=== PATIENT | female | born 1940 | race Caucasian/White ===

== ENCOUNTER 2022-09-07 16:50 | Inpatient (IN) | payer MEDICARE, OTHER ==
[~2022-09-07] VITALS: Ht 157.5 cm; Wt 53.5 kg
--- NOTE | 2022-09-07 17:23 | NUR ---
DR MONTANA AT BEDSIDE FOR EVAL.
[2022-09-07] MEDS ORDERED: HYDROMORPHONE 1 MG/1 ML DISP.SYRIN IV ONE (17:30)
[2022-09-07] MEDS ORDERED: HYDROMORPHONE 1 MG/1 ML DISP.SYRIN ONE (17:52)
--- NOTE | 2022-09-07 18:02 | NUR ---
PT TO RADIOLOGY FOR HEAD AND FACIAL CT SCAN
[2022-09-07 18:19] LABS: BASOPHILS % (AUTO) 0.1 % (0.0-2.0); EOSINOPHILS % (AUTO) 0.7 % (0.0-6.0); HEMATOCRIT 33 % (33-45); HEMOGLOBIN 10.2 g/dL (11.5-14.8); LYMPHOCYTES # (AUTO) 1.2 K/uL (0.8-4.8); LYMPHOCYTES % (AUTO) 8.3 % (20.0-44.0); MEAN CORPUSCULAR HGB CONC 31 g/dl (31.0-36.0); MEAN CORPUSCULAR VOLUME 79 fL (82-100); MONOCYTES # (AUTO) 0.5 K/uL (0.1-1.30); MONOCYTES % (AUTO) 3.3 % (2.0-12.0); NEUTROPHILS # (AUTO) 12.3 K/uL (1.8-8.9); NEUTROPHILS % (AUTO) 87.6 % (43.0-81.0); PLATELET COUNT (AUTO) 322 K/uL (150-450); RED BLOOD CELL COUNT(AUTO) 4.15 MIL/uL (4.0-5.2)
[2022-09-07 18:30] LABS: CALCIUM, SERUM 8.5 mg/dL (8.5-10.1); CREATININE 0.7 mg/dL (0.6-1.3); POTASSIUM 3.1 mmol/L (3.5-5.1)
--- NOTE | 2022-09-07 18:33 | NUR ---
COVID SWAB DONE SENT TO LAB.
--- NOTE | 2022-09-07 19:13 | NUR ---
CALLED [facility] [phone] [facility] 9 ANALILIA LOUIE SPEAKING WITH DR. MONTANA.
[2022-09-07] MEDS ORDERED: POTASSIUM CHLORIDE 20 MEQ TAB.PRT.SR PO ONE ×3 (19:30→20:30)
[2022-09-07] MEDS ORDERED: Z GUARD REMEDY 4 OZ OINT TP PRN (20:00)
[2022-09-07] MEDS ORDERED: ZOLPIDEM TARTRATE 5 MG TABLET PO PRN (20:00)
[2022-09-07] MEDS ORDERED: MAGNESIUM HYDROXIDE 30 ML UDC PO PRN (20:00)
[2022-09-07] MEDS ORDERED: IV NS 0.9% 1,000 ML IV ONE (20:00)
[2022-09-07] MEDS ORDERED: ACETAMINOPHEN 325 MG TABLET PO PRN (20:00)
[2022-09-07] MEDS ORDERED: MAG HYDROX/AL HYDROX/SIMETH 30 ML UDC PO PRN (20:00)
[2022-09-07] MEDS ORDERED: ONDANSETRON HCL/PF 4 MG/2 ML VIAL IVP PRN (20:00)
--- NOTE | 2022-09-07 20:58 | NUR ---
REPORT GIVEN TO BENITO BURRIS
--- NOTE | 2022-09-07 21:15 | NUR ---
PATIENT TRANSFERRED TO [facility]
[2022-09-07 21:21] VITALS: BP 150/53
--- NOTE | 2022-09-07 21:21 | NUR ---
RN RECEIVING NOTE FROM ER PATIENT ARRIVED STABLE TO UNIT VIA GURNEY FROM ER. PATIENT TRANSFERRED INTO UNIT BED BY STAFF. A/OX4. NO S/S OF DISTRESS, BREATHING WITHOUT DIFFICULTY ON ROOM AIR. LAC #18 INTACT AND PATENT. SAFETY MEASURES IN PLACE: BED LOCKED AND AT LOWEST POSITION, RAILS UP X2, CALL DAVIDSON WITHIN REACH. PATIENT WAS ORIENTED TO THE UNIT. PATIENT GIVEN CALL DAVIDSON AND INSTRUCTED ON ITS USE. BELONGINGS ACCOUNTED FOR, LOGGED INTO SHEET, AND PLACED IN CHART. ALL QUESTIONS ANSWERED. ALL PAIN NEEDS MET. PATIENT IS STABLE; WILL CONTINUE TO MONITOR PATIENT.
[2022-09-07] MEDS ORDERED: MORPHINE SULFATE INJ 4 MG/ML DISP.SYRIN IV PRN (21:30)
[2022-09-07] MEDS: HYDROMORPHONE 1 MG/1 ML DISP.SYRIN IV PRN (22:10)
[2022-09-08 02:15] VITALS: BP 150/59
[2022-09-08] MEDS: HYDROMORPHONE 1 MG/1 ML DISP.SYRIN IV PRN ×2 (04:30→10:57)
[2022-09-08 06:09] LABS: BILIRUBIN,URINE NEGATIVE (NEGATIVE); COLOR,URINE YELLOW (YELLOW); LEUKOCYTE ESTERASE ,URINE NEGATIVE (NEGATIVE); NITRITE, URINE NEGATIVE (NEGATIVE); PROTEIN,URINE NEGATIVE (NEGATIVE); UGLUCOSE NEGATIVE (NEGATIVE); UROBILINOGEN,URINE 0.2 EU/dL (0.2)
[2022-09-08 06:19] LABS: BACTERIA,URINE Rare /HPF (None Seen); SQUAMOUS EPITHELIAL CELL,UR Few /HPF (None Seen)
[2022-09-08 06:56] LABS: BASOPHILS % (AUTO) 0.2 % (0.0-2.0); EOSINOPHILS % (AUTO) 0.1 % (0.0-6.0); HEMATOCRIT 30 % (33-45); HEMOGLOBIN 9.6 g/dL (11.5-14.8); LYMPHOCYTES % (AUTO) 11.2 % (20.0-44.0); MEAN CORPUSCULAR HGB CONC 32 g/dl (31.0-36.0); MEAN CORPUSCULAR VOLUME 80 fL (82-100); MONOCYTES # (AUTO) 0.6 K/uL (0.1-1.30); MONOCYTES % (AUTO) 6.4 % (2.0-12.0); NEUTROPHILS # (AUTO) 7.2 K/uL (1.8-8.9); NEUTROPHILS % (AUTO) 82.1 % (43.0-81.0); PLATELET COUNT (AUTO) 346 K/uL (150-450); RED BLOOD CELL COUNT(AUTO) 3.79 MIL/uL (4.0-5.2); WHITE BLOOD COUNT (AUTO) 8.8 K/uL (4.3-11.0)
--- NOTE | 2022-09-08 06:56 | NUR ---
RN CLOSING NOTE PATIENT AWAKE IN BED. A/OX4. NO S/S OF DISTRESS, BREATHING WITHOUT DIFFICULTY ON ROOM AIR. LAC #18 INTACT AND PATENT W/ NS 75ML/HR. SAFETY MEASURES IN PLACE: BED LOCKED AND AT LOWEST POSITION, RAILS UP X2, CALL DAVIDSON WITHIN REACH. WILL ENDORSE TO NEXT SHIFT FOR AISHA.
--- NOTE | 2022-09-08 07:20 | NUR ---
MS RN OPENING NOTE PATIENT AWAKE IN BED. A/OX4 ABLE TO MAKE NEEDS KNOWN, NO COMPLAINTS OR DISCOMFORT AT THIS TIME. NO S/S OF DISTRESS, BREATHING WITHOUT DIFFICULTY ON ROOM AIR. NO S/S OF RESPIRATORY DISTRESS NOTED. IV ACCESS LAC #18 INTACT AND PATENT W/ NS RUNNING AT 75ML/HR, NO SIGNS OF INFILTRATION. SAFETY MEASURES IN PLACE: BED LOCKED AND AT LOWEST POSITION, RAILS UP X2, CALL LIGHT AND TRAY WITHIN REACH.
[2022-09-08 07:32] LABS: ALANINE AMINOTRANSFERASE 21 U/L (12-78); ALBUMIN 2.5 g/dL (3.4-5.0); ALKALINE PHOSPHATASE 64 U/L (46-116); ASPARTATE AMINOTRANSFERASE 22 U/L (15-37); BILIRUBIN,DIRECT 0.1 mg/dL (0.0-0.2); BILIRUBIN,TOTAL 0.4 mg/dL (0.2-1.0); CALCIUM, SERUM 8.2 mg/dL (8.5-10.1); CARBON DIOXIDE 26 mmol/L (21-32); CHLORIDE 103 mmol/L (98-107); CREATININE 0.7 mg/dL (0.6-1.3); GLUCOSE 135 mg/dL (74-106); MAGNESIUM 2.1 mg/dL (1.8-2.4); PHOSPHORUS 3.2 mg/dL (2.5-4.9); POTASSIUM 3.2 mmol/L (3.5-5.1); SODIUM SERUM 137 mmol/L (136-145); UREA NITROGEN, BLOOD 21 mg/dL (7-18)
[2022-09-08 07:39] LABS: CHOLESTEROL 161 mg/dL (<200); HDL CHOLESTEROL 60 mg/dL (40-60); LDL 89 mg/dL (0-99); THYROID STIMULATING HORMONE 1.302 uIU/mL (0.358-3.74); TRIGLYCERIDES 46 mg/dL (30-150)
[2022-09-08 08:00] VITALS: BP 148/71
[2022-09-08] MEDS: PANTOPRAZOLE 40 MG VIAL IV SCH (08:59)
[2022-09-08] MEDS ORDERED: MULT-447 PO (10:05)
[2022-09-08] MEDS ORDERED: CHOL100043 PO (10:05)
[2022-09-08] MEDS ORDERED: LOSA50TA39 PO (10:05)
[2022-09-08] MEDS ORDERED: AMLO-212 PO (10:05)
[2022-09-08] MEDS ORDERED: CALC1TAB30 PO (10:05)
[2022-09-08] MEDS ORDERED: POTA10TA10 PO (10:05)
[2022-09-08] MEDS: POTASSIUM CL. PREMIX PERIPHER. 50 ML IV SCH ×4 (10:11→14:06)
[2022-09-08 11:09] LABS: IRON, SERUM 18 ug/dl (50-175); TOTAL IRON BINDING CAPACITY 308 ug/dl (250-450)
--- NOTE | 2022-09-08 11:10 | NUR ---
RN NOTES APPLIED SLING TO RIGHT ARM PER MD ORDER.
[2022-09-08 11:23] LABS: FERRITIN 51 ng/mL (8-388)
[2022-09-08] MEDS ORDERED: CALC-343 PO (14:19)
--- NOTE | 2022-09-08 15:23 | NUR ---
RN NOTES ANALILIA SAL AT PT'S BEDSIDE AND EXPLAINED TO PT AND DAUGHTER THAT PT WILL HAVE RIGHT HIP INTRAMEDULLARY NAIL TOMORROW. PT'S DAUGHTER RAFA SIGNED ALL CONSENTS FOR THE PROCEDURE AND FILED ON HER CHART. NPO TO BE ENFORCED AFTER MIDNIGHT.
--- NOTE | 2022-09-08 15:56 | NUR ---
RN NOTES PATIENTS FAMILY WAS HERE AND DISCUSSED VARIOUS REHABS POST SURGERY TOMORROW. GAVE SOUND PRINTER GLENN, THE DAUGHTER DEBBIES PHONE NUMBER TO FOLLOW UP.
[2022-09-08 16:00] VITALS: BP 150/66
--- NOTE | 2022-09-08 16:04 | NUR ---
RN NOTES SPOKED TO PATIENT AT BEDSIDE AND SHE STATED THAT THE PRIMARY PERSON TO CONTACT WILL BE HER DAUGHTER RAFA BAILEY AT [facility] # [phone]. [employer]ER [employer] FRANCISCO ASCENCIO.
[2022-09-08] MEDS: HYDROCODONE/APAP 5/325MG TABLET PO PRN ×2 (16:16→22:21)
--- NOTE | 2022-09-08 18:48 | NUR ---
RN CLOSING NOTE PATIENT AWAKE IN BED AT THIS TIME.. A/OX4, ABLE TO MAKE NEEDS KNOWN. BREATHING WITHOUT DIFFICULTY ON ROOM AIR, NO SIGNS OF DISTRESS. IV ACCESS LAC #18G INTACT AND PATENT, INFUSING WITH NS @75ML/HR. PAIN MEDICATION GIVEN ORDERED AND TOLERATED. SAFETY MEASURES IN PLACE: BED LOCKED AND AT LOWEST POSITION, RAILS UP X2, CALL DAVIDSON WITHIN REACH. ALL NEEDS MET AT THIS TIME. WILL ENDORSE AISHA TO NIGHT NURSE
--- NOTE | 2022-09-08 19:57 | NUR ---
RN OPENING NOTE PATIENT AWAKE, AMBULATING IN THE HALLWAY. A/OX4. NO S/S OF DISTRESS; BREATHING WITHOUT DIFFICULTY ON ROOM AIR. RAC #20 SL INTACT AND PATENT. TELE READS SR 83. SAFETY MEASURES IN PLACE: BED LOCKED AND AT LOWEST POSITION, RAILS UP X2, CALL DAVIDSON WITHIN REACH. WILL CONTINUE TO MONITOR PATIENT. Addendum: 09/08/22 at 1958 by DAYTON ARMSTRONG RN INCORRECT PATIENT
--- NOTE | 2022-09-08 19:58 | NUR ---
RN OPENING NOTE PATIENT AWAKE IN BED. A/OX4. NO S/S OF DISTRESS; BREATHING WITHOUT DIFFICULTY ON ROOM AIR. LAC #18 INTACT AND PATENT W/ NS 75ML/HR. SAFETY MEASURES IN PLACE: BED LOCKED AND AT LOWEST POSITION, RAILS UP X2, CALL DAVIDSON WITHIN REACH. WILL CONTINUE TO MONITOR PATIENT.
[2022-09-08 21:04] VITALS: BP 143/57
[2022-09-09] VITALS (13 sets, daily range): BP systolic 106–156; BP diastolic 40–82
--- NOTE | 2022-09-09 07:01 | NUR ---
RN CLOSING NOTE PATIENT ASLEEP IN BED. NO S/S OF DISTRESS, BREATHIING WITHOUT DIFFICULTY ON ROOM AIR. LAC #18 SL INTACT AND PATENT. SAFETY MEASURES IN PLACE: BED LOCKED AND IN LOWEST POSITION, RAILS UP X2, CALL DAVIDSON WITHIN REACH. WILL ENDORSE TO NEXT SHIFT FOR AISHA.
[2022-09-09 07:20] LABS: BASOPHILS % (AUTO) 0.1 % (0.0-2.0); EOSINOPHILS % (AUTO) 0.5 % (0.0-6.0); HEMATOCRIT 29 % (33-45); HEMOGLOBIN 9.2 g/dL (11.5-14.8); LYMPHOCYTES # (AUTO) 0.9 K/uL (0.8-4.8); LYMPHOCYTES % (AUTO) 9.7 % (20.0-44.0); MEAN CORPUSCULAR HGB CONC 32 g/dl (31.0-36.0); MEAN CORPUSCULAR VOLUME 79 fL (82-100); MONOCYTES # (AUTO) 0.6 K/uL (0.1-1.30); MONOCYTES % (AUTO) 6.5 % (2.0-12.0); NEUTROPHILS # (AUTO) 7.9 K/uL (1.8-8.9); NEUTROPHILS % (AUTO) 83.2 % (43.0-81.0); PLATELET COUNT (AUTO) 334 K/uL (150-450); RED BLOOD CELL COUNT(AUTO) 3.67 MIL/uL (4.0-5.2); WHITE BLOOD COUNT (AUTO) 9.5 K/uL (4.3-11.0)
[2022-09-09 07:37] LABS: ALBUMIN 2.4 g/dL (3.4-5.0); BILIRUBIN,TOTAL 0.6 mg/dL (0.2-1.0); CALCIUM, SERUM 8.3 mg/dL (8.5-10.1); CREATININE 0.7 mg/dL (0.6-1.3); MAGNESIUM 2.4 mg/dL (1.8-2.4); POTASSIUM 3.3 mmol/L (3.5-5.1); TOTAL PROTEIN, SERUM 6.1 g/dL (6.4-8.2)
--- NOTE | 2022-09-09 07:46 | NUR ---
RN OPENING NOTE PATIENT MAINTAINED ON NPO STATUS FOR SCHEDULED ORTHOPEDIC SURGERY TODAY AT 11:00 AM. PATIENT AWAKE IN BED. A/OX4. NO S/S OF DISTRESS; BREATHING WITHOUT DIFFICULTY ON ROOM AIR. LAC #18 INTACT AND PATENT W/ NS 75ML/HR. SAFETY MEASURES IN PLACE: BED LOCKED AND AT LOWEST POSITION, RAILS UP X2, CALL DAVIDSON WITHIN REACH. WILL CONTINUE TO MONITOR PATIENT.
[2022-09-09] MEDS ORDERED: BUPIVACAINE 0.25% 75 MG/30 ML VIAL ONE (09:00)
[2022-09-09] MEDS ORDERED: BUPIVACAINE 0.5 % PF 150 MG/30 ML VIAL ONE ×2 (09:00→09:51)
[2022-09-09] MEDS: PANTOPRAZOLE 40 MG VIAL IV SCH (09:06)
[2022-09-09] MEDS ORDERED: VANCOMYCIN 1 GM VIAL ONE (09:51)
--- NOTE | 2022-09-09 10:32 | NUR ---
RN NOTES PATIENT PICKED-UP JUST NOW FOR SURGERY VIA HER BED
[2022-09-09] MEDS ORDERED: POTASSIUM CL. PREMIX PERIPHER. 50 ML IV SCH ×2 (11:00→16:00)
[2022-09-09] MEDS ORDERED: POLYMYXIN B SULFATE 500,000 UNITS ONE (11:16)
[2022-09-09] MEDS ORDERED: FENTANYL PF 100MCG/2ML AMPUL ONE (11:19)
[2022-09-09] MEDS ORDERED: ROCURONIUM BROMIDE 50 MG/5 ML ONE (11:19)
[2022-09-09] MEDS ORDERED: SOD FERRIC GLUC 125 MG in IV NS 0.9% 100 ML IV SCH (14:00)
[2022-09-09] MEDS: LOSARTAN POTASSIUM 50 MG TABLET PO SCH (14:00)
--- NOTE | 2022-09-09 14:00 | NUR ---
RN NOTES PT RETURNED TO UNIT AT 1345 ACCOMPANIED BY BUSINESS LAW PROFESSOR TRACE DYER S/P RIGHT HIP INTRAMEDULLARY NAIL RODDING BY DR BETANCUR. PT IS SLIGHTLY LETHARGIC BUT RESPONSIVE TO TACTILE AND VERBAL STIMULI, NO C/O PAIN AT THIS TIME. PT ON SUPPLEMENTAL 02 @ 2LPM, TOLERATING WELL, NO SOB NOTED WITH SP02 95%. PT HAS NEW IV ACCESS ON RFA G#20, OLD IV ACCESS ON RAC G#18 REMOVED BEFORE SURGERY. PT HAS ALSTON IN PLACE NOW FR #16 WITH CLEAR YELLOW URINE OUT PUT NOTED. ALL S/P ORDERED RECEIVED AND WILL CARRY OUT. SAFETY MEASURES MAINTAINED. WILL CONTINUE TO MONITOR PT CLOSELY.
[2022-09-09] MEDS ORDERED: HYDROCODONE/APAP 10/325MG TABLET PO PRN (14:30)
[2022-09-09] MEDS ORDERED: POTASSIUM CHLORIDE 20 MEQ POWDER PACKET PO ONE (15:30)
[2022-09-09] MEDS: HYDROCODONE/APAP 10/325MG TABLET PO PRN (15:53)
[2022-09-09] MEDS: IRON SUCROSE COMPLEX 200 MG in IV NS 0.9% 100 ML IV SCH (15:54)
[2022-09-09] MEDS: CEFAZOLIN 2 GM in IV D5W 100 ML IV SCH (18:51)
--- NOTE | 2022-09-09 19:20 | NUR ---
RN CLOSING NOTE PATIENT AWAKE IN BED AT THIS TIME. A/OX4, ABLE TO MAKE NEEDS KNOWN. BREATHING WITHOUT DIFFICULTY ON ROOM AIR, NO SIGNS OF DISTRESS. RETURNED STATUS POST ORTHOPEDIC SURGERY AT 13:45 HRS WITH 3 SURGICAL SITE DRESSINGS TO HER RIGHT LEG WHICH ARE CLEAN, DRY, INTACT. COLOR, SENSATION AND MOTION IN RIGHT FOOT ARE WITHIN NORMAL LIMITS. IV ACCESS LAC #18G INTACT AND PATENT, INFUSING WITH ANCEF @ 200mLs /HR. PAIN MEDICATION GIVEN ORDERED AND TOLERATED. SAFETY MEASURES IN PLACE: BED LOCKED AND AT LOWEST POSITION, RAILS UP X2, CALL DAVIDSON WITHIN REACH. PATIENT HAS Garcia CATHETER THAT DRAINED 100 mLs CLEAR YELLOW URINE SINCE HER RETURN FROM SURGERY.ALL NEEDS MET AT THIS TIME. WILL ENDORSE AISHA TO NIGHT NURSE
--- NOTE | 2022-09-09 19:45 | NUR ---
MS RN NOTES RECEIVED ON BED A/O X4,QBLE TO VERBALIZED NEEDS.S/P SURGERY IN RIGHT HIP,DRESSING INTACT AND DRY.SALINE LOCK RIGHT FORE ARM INTACT AND PATENT.WITH ALSTON CATH IN PLACE DRAINS CLEAR YELLOW URINE OUTPUT.PAIN TOLERABLE AT THE MOMENT.DVT IN USED FOR DVT PROPHYLAXIS,CALL LIGHT IN REACH,NEEDS ANTICIPATED.
[2022-09-10] MEDS: CEFAZOLIN 2 GM in IV D5W 100 ML IV SCH ×2 (01:37→10:24)
[2022-09-10] MEDS: HYDROCODONE/APAP 10/325MG TABLET PO PRN ×2 (02:02→09:44)
--- NOTE | 2022-09-10 02:02 | NUR ---
MS RN NOTES AWAKE THIS TIME,HAVING FACIAL GRIMACE,NORCO 10/325MG,1 TAB PO GIVEN ORDERED FOR MODERATE PAIN 6/10 ON PAIN SCALE.
[2022-09-10 04:32] VITALS: BP 118/46
--- NOTE | 2022-09-10 06:33 | NUR ---
MS RN NOTES MORNING CARE RENDERED,TOLERATED WELL.PAIN MANAGEMENT EFFECTIVE.ALSTON CATHETER DRAINS WELL.DRESSING TO LEFT HIP AND LEGS INTACT AND DRY,NO BLEEDING NOTED.SALINE LOCK LEFT ARM INTACT AND PATENT.FOR PT EVAL FOR AMBULATION.CALL LIGHT IN REACH,NEEDS ATTENDED.
[2022-09-10 07:15] LABS: BASOPHILS % (AUTO) 0.2 % (0.0-2.0); EOSINOPHILS % (AUTO) 0.3 % (0.0-6.0); HEMATOCRIT 23 % (33-45); HEMOGLOBIN 7.2 g/dL (11.5-14.8); LYMPHOCYTES # (AUTO) 1.1 K/uL (0.8-4.8); LYMPHOCYTES % (AUTO) 9.1 % (20.0-44.0); MEAN CORPUSCULAR HGB CONC 32 g/dl (31.0-36.0); MEAN CORPUSCULAR VOLUME 78 fL (82-100); MONOCYTES # (AUTO) 0.6 K/uL (0.1-1.30); MONOCYTES % (AUTO) 5.6 % (2.0-12.0); NEUTROPHILS # (AUTO) 9.8 K/uL (1.8-8.9); NEUTROPHILS % (AUTO) 84.8 % (43.0-81.0); PLATELET COUNT (AUTO) 280 K/uL (150-450); RED BLOOD CELL COUNT(AUTO) 2.92 MIL/uL (4.0-5.2); WHITE BLOOD COUNT (AUTO) 11.5 K/uL (4.3-11.0)
[2022-09-10 07:38] LABS: CARBON DIOXIDE 27 mmol/L (21-32); CHLORIDE 104 mmol/L (98-107); GLUCOSE 104 mg/dL (74-106); MAGNESIUM 2.3 mg/dL (1.8-2.4); PHOSPHORUS 2.5 mg/dL (2.5-4.9); POTASSIUM 3.8 mmol/L (3.5-5.1); SODIUM SERUM 138 mmol/L (136-145); UREA NITROGEN, BLOOD 26 mg/dL (7-18)
--- NOTE | 2022-09-10 07:40 | NUR ---
RN OPENING NOTE RECEIVED PATIENT AWAKE IN BED. A/OX4. NO S/S OF DISTRESS. BREATHING EVEN AND NONLABORED ON ROOM AIR. IV ACCESS: LAC #18 INTACT AND PATENT. PATIENT HAVE A ALSTON CATHETER, IN PLACE AND DRAINING WELL. SAFETY MEASURES IN PLACE: BED IS IN LOWEST LOCKED POSITION, HOB IS ELEVATED, BED ALARM ON, SIDE RAILS UP X 3 AND CALL LIGHT WITHIN REACH. WILL CONTINUE TO MONITOR PATIENT THROUGHOUT THE SHIFT.
[2022-09-10 08:00] VITALS: BP 142/84
[2022-09-10] MEDS: PANTOPRAZOLE 40 MG VIAL IV SCH (09:41)
[2022-09-10] MEDS: AMLODIPINE BESYLATE 5 MG TABLET PO SCH (09:42)
[2022-09-10] MEDS: LOSARTAN POTASSIUM 50 MG TABLET PO SCH (09:43)
[2022-09-10] MEDS: MULTIVIT W/MINERALS 1 TAB TABLET PO SCH (09:43)
[2022-09-10] MEDS: CHOLECALCIFEROL 1,000 UNIT TABLET (VIT D3) PO SCH (09:43)
[2022-09-10] MEDS: CALCIUM CARBONATE (1250) 500 MG TABLET PO SCH (09:43)
[2022-09-10] MEDS: IV LR 1000 ML 1,000 ML IV PRN (10:36)
[2022-09-10] MEDS: ENOXAPARIN SODIUM 40 MG/0.4 ML DISP.SYRIN SQ SCH (14:00)
--- NOTE | 2022-09-10 14:00 | NUR ---
RN NOTE HOLD LOVENOX 40MG @1400. RELAYED H&H RESULT TO DR SAL. DR ORDERED TO HELD THIS LOVENOX DOSE.
[2022-09-10 14:41] LABS: HEMOGLOBIN 7.4 g/dL (11.5-14.8)
[2022-09-10 16:00] VITALS: BP 118/38
--- NOTE | 2022-09-10 18:38 | NUR ---
RN CLOSING NOTE PATIENT AWAKE IN BED. A/OX4. NO S/S OF DISTRESS. BREATHING EVEN AND NONLABORED ON ROOM AIR. IV ACCESS: LAC #18 INTACT AND PATENT, LR @85ML/HR. PATIENT HAVE A ALSTON CATHETER IN PLACE AND DRAINING WELL. ALL CARE PROVIDED AND ADMINISTERED MEDICATIONS TOLERATED WELL. SAFETY PRECAUTIONS MAINTAINED: BED LOCKED AND IN LOWEST POSITION, HOB ELEVATED, SIDE RAILS UP X2, CALL LIGHT AND TABLE WITHIN REACH. WILL ENDORSE AISHA TO TRICOT KNITTER NURSE.
--- NOTE | 2022-09-10 19:41 | NUR ---
MS RN NOTES RECEIVED ON BED AWAKE,ALERT ORIENTED X4,NO SOB,S/P RIGHT HIP SURGERY,DRESSING INTACT AND DRY.PRESENT IVF LR AT 100ML/HR RATE IN PROGRESS,INFUSING VIA IV PUMP ON LEFT ARM.ALSTON CATH IN PLACE DRAINS YELLOWISH URINE OUTPUT.PAIN TOLERABLE AT THE MOMENT.CALL LIGHT IN REACH,NEEDS ANTICIPATED.
[2022-09-10 20:00] VITALS: BP 119/49
[2022-09-11] MEDS: IV LR 1000 ML 1,000 ML IV PRN (00:15)
--- NOTE | 2022-09-11 02:45 | NUR ---
MS RN NOTES IV SITE INFILTRATED,NEW SALINE LOCK PLACE ON LEFT HAND # 22, IV RE STARTED.
[2022-09-11 06:23] LABS: BASOPHILS % (AUTO) 0.2 % (0.0-2.0); EOSINOPHILS % (AUTO) 1.7 % (0.0-6.0); HEMATOCRIT 21 % (33-45); LYMPHOCYTES # (AUTO) 1.1 K/uL (0.8-4.8); LYMPHOCYTES % (AUTO) 15.5 % (20.0-44.0); MEAN CORPUSCULAR HGB CONC 33 g/dl (31.0-36.0); MEAN CORPUSCULAR VOLUME 78 fL (82-100); MONOCYTES # (AUTO) 0.6 K/uL (0.1-1.30); MONOCYTES % (AUTO) 8.4 % (2.0-12.0); NEUTROPHILS # (AUTO) 5.2 K/uL (1.8-8.9); NEUTROPHILS % (AUTO) 74.2 % (43.0-81.0); PLATELET COUNT (AUTO) 267 K/uL (150-450); RED BLOOD CELL COUNT(AUTO) 2.69 MIL/uL (4.0-5.2); WHITE BLOOD COUNT (AUTO) 7.1 K/uL (4.3-11.0)
[2022-09-11 06:39] LABS: HEMOGLOBIN 6.8 g/dL (11.5-14.8)
[2022-09-11 06:55] LABS: CALCIUM, SERUM 7.8 mg/dL (8.5-10.1); CREATININE 0.7 mg/dL (0.6-1.3); MAGNESIUM 2.3 mg/dL (1.8-2.4); PHOSPHORUS 2.1 mg/dL (2.5-4.9); POTASSIUM 3.8 mmol/L (3.5-5.1)
--- NOTE | 2022-09-11 07:25 | NUR ---
RN OPENING NOTES RECEIVED PATIENT IN BED, AWAKE, A/O X4, VERBALLY RESPONSIVE. NO SIGNS OF ACUTE DISTRESS NOTED. ON ROOM AIR, TOLERATING WELL. NO SOB NOTED, BREATHING EVEN AND UNLABORED. NOTED WITH IV ACCESS ON RIGHT HAND #22G, INTACT AND PATENT WITH LR @85 ML/HR RUNNING. NOTED WITH F/C INTACT, DRAINING CLEAR YELLOW URINE VIA GRAVITY. SAFETY MEASURE IN PLACE.ED IN LOWEST AND LOCKED POSITION. SIDE RAILS UP X2, CALL LIGHT PLACED WITHIN EASY REACH. WILL CONTINUE TO MONITOR PATIENT.
--- NOTE | 2022-09-11 07:28 | NUR ---
MS RN NOTES REPORTED BY CHARGE NURSE ALIDA,HEMOGLOBIN OF 6.8 THIS MORNING,HOSPITALIST MARKUS MADE ORDER WITH ORDER TO TRANSFUSE 1 UNIT PRBC,NURSE ASSIGNED MALIKA MADE AWARE.ASLEEP THRU OUT SHIFT.IN NO ACUTE DISTRESS.
[2022-09-11] MEDS: HYDROCODONE/APAP 10/325MG TABLET PO PRN (07:47)
[2022-09-11] MEDS: PANTOPRAZOLE 40 MG TABLET.DR PO SCH (09:37)
[2022-09-11] MEDS: LOSARTAN POTASSIUM 50 MG TABLET PO SCH (09:37)
[2022-09-11] MEDS: MULTIVIT W/MINERALS 1 TAB TABLET PO SCH (09:37)
[2022-09-11] MEDS: AMLODIPINE BESYLATE 5 MG TABLET PO SCH (09:37)
[2022-09-11] MEDS: CALCIUM CARBONATE (1250) 500 MG TABLET PO SCH (09:37)
[2022-09-11] MEDS: CHOLECALCIFEROL 1,000 UNIT TABLET (VIT D3) PO SCH (09:38)
[2022-09-11] MEDS ORDERED: NEUTRA PHOS 1 POWD.PACKET PO ONE ×2 (11:00)
[2022-09-11 11:51] LABS: BAND % (MANUAL) 3 % (0.0-5.0); EOSINOPHILS % (MANUAL) 2 % (0-4); LYMPHOCYTES % (MANUAL) 22 % (16-48); MONOCYTES % (MANUAL) 5 % (0-11.0); NEUTROPHILS % (MANUAL) 68 (42-76)
[2022-09-11] MEDS: ENOXAPARIN SODIUM 40 MG/0.4 ML DISP.SYRIN SQ SCH (14:00)
[2022-09-11 14:20] VITALS: BP 120/57
--- NOTE | 2022-09-11 14:30 | NUR ---
RN NOTE BLOOD TRANSFUSION OF 1 UNIT PRBC STARTED. VITAL SIGNS FOLLOWS: 120/57, 78, 97.8, 19. WILL MONITOR FOR ADVERSE REACTION.
[2022-09-11 14:45] VITALS: BP 123/51
[2022-09-11 15:45] VITALS: BP 126/71
--- NOTE | 2022-09-11 17:00 | NUR ---
RN NOTE BLOOD TRANSFUSION DONE, WITHOUT ANY SIGNS OF ADVERSE REACTION. PATIENT TOLERATED PROCEDURE WELL. VITAL SIGNS WNL.
[2022-09-11 17:03] VITALS: BP 115/61
[2022-09-11] MEDS: IRON SUCROSE COMPLEX 200 MG in IV NS 0.9% 100 ML IV SCH (17:17)
--- NOTE | 2022-09-11 18:40 | NUR ---
RN CLOSING NOTE PATIENT IN BED, AWAKE, A/O X4, VERBALLY RESPONSIVE. NO SIGNS OF ACUTE DISTRESS NOTED. REMAINS STABLE ON ROOM AIR, NO SOB NOTED, BREATHING EVEN AND UNLABORED. IV ACCESS ON RIGHT HAND #22G, INTACT AND PATENT WITH LR @85 ML/HR RUNNING. NOTED WITH F/C INTACT, DRAINING CLEAR YELLOW URINE VIA GRAVITY. S/P BLOOD TRANSFUSION, NO A/R NOTED. ALL DUE MEDS GIVEN, TAKEN WELL. SAFETY MEASURE MAINTAINED. BED IN LOWEST AND LOCKED POSITION. SIDE RAILS UP X2, CALL LIGHT PLACED WITHIN EASY REACH. WILL ENDORSE TO NEXT SHIFT FOR CONTINUITY OF CARE.
--- NOTE | 2022-09-11 19:48 | NUR ---
RN OPENING NOTE PATIENT ASLEEP IN BED. A/OX4. NO S/S OF DISTRESS, BREATHING WITHOUT DIFFICULTY ON ROOM AIR. R-WRIST #20 INTACT AND PATENT. SAFETY MEASURES IN PLACE: BED LOCKED AND AT LOWEST POSITION, RAILS UP X2, CALL DAVIDSON WITHIN REACH. WILL CONTINUE TO MONITOR PATIENT.
[2022-09-11 20:00] VITALS: BP 144/64
[2022-09-12] MEDS: HYDROCODONE/APAP 10/325MG TABLET PO PRN ×2 (00:26→14:30)
[2022-09-12] MEDS: IV LR 1000 ML 1,000 ML IV PRN ×2 (06:33→21:40)
--- NOTE | 2022-09-12 06:56 | NUR ---
RN CLOSING NOTE PATIENT ASLEEP IN BED. A/OX4. NO S/S OF DISTRESS, BREATHING WITHOUT DIFFICULTY ON ROOM AIR. RFA #20 INTACT AND PATENT W/ LR 85ML/HR. SAFETY MEASURES IN PLACE: BED LOCKED AND AT LOWEST POSITION, RAILS UP X2, CALL DAVIDSON WITHIN REACH. WILL ENDORSE TO NEXT SHIFT FOR AISHA.
[2022-09-12 07:00] VITALS: BP 145/51
--- NOTE | 2022-09-12 07:24 | NUR ---
MS RN OPENING NOTES RECEIVED PATIENT AWAKE IN BED IN NO ACUTE SIGNS OF DISTRESS. A/O X4, ABLE TO MAKE NEEDS KNOWN, NO C/O PAIN OR DISCOMFORTS AT THIS TIME. ON ROOM AIR, TOLERATING WELL, BREATHING EVEN AND UNLABORED. PT WITH RIGHT ARM SLING IN PLACE. IV ACCESS ON LFA #22G INTACT WITH LR @85 ML/HR RUNNING, NO S/S OF INFILTRATION AT SITE NOTED. ALSTON IN PLACE, DRAINING CLEAR YELLOW URINE VIA GRAVITY. SAFETY MEASURE IN PLACE: BED IN LOWEST LOCKED POSITION, SIDE RAILS UP X2, TRAY TABLE AND CALL LIGHT PLACE WITHIN EASY REACH OF PT. WILL CONTINUE TO MONITOR PATIENT.
[2022-09-12] MEDS: CHOLECALCIFEROL 1,000 UNIT TABLET (VIT D3) PO SCH (08:34)
[2022-09-12] MEDS: CALCIUM CARBONATE (1250) 500 MG TABLET PO SCH (08:34)
[2022-09-12] MEDS: MULTIVIT W/MINERALS 1 TAB TABLET PO SCH (08:34)
[2022-09-12] MEDS: PANTOPRAZOLE 40 MG TABLET.DR PO SCH (08:35)
[2022-09-12] MEDS: LOSARTAN POTASSIUM 50 MG TABLET PO SCH (08:48)
[2022-09-12] MEDS: AMLODIPINE BESYLATE 5 MG TABLET PO SCH (08:48)
[2022-09-12 11:20] LABS: BASOPHILS % (AUTO) 0.2 % (0.0-2.0); HEMATOCRIT 28 % (33-45); HEMOGLOBIN 9.1 g/dL (11.5-14.8); LYMPHOCYTES # (AUTO) 1.5 K/uL (0.8-4.8); LYMPHOCYTES % (AUTO) 21.6 % (20.0-44.0); MEAN CORPUSCULAR HGB CONC 33 g/dl (31.0-36.0); MEAN CORPUSCULAR VOLUME 79 fL (82-100); MONOCYTES # (AUTO) 0.5 K/uL (0.1-1.30); MONOCYTES % (AUTO) 7.7 % (2.0-12.0); NEUTROPHILS # (AUTO) 4.7 K/uL (1.8-8.9); NEUTROPHILS % (AUTO) 69.5 % (43.0-81.0); PLATELET COUNT (AUTO) 330 K/uL (150-450); RED BLOOD CELL COUNT(AUTO) 3.52 MIL/uL (4.0-5.2); WHITE BLOOD COUNT (AUTO) 6.7 K/uL (4.3-11.0)
[2022-09-12] MEDS: ENOXAPARIN SODIUM 40 MG/0.4 ML DISP.SYRIN SQ SCH (13:49)
--- NOTE | 2022-09-12 18:36 | NUR ---
MS RN CLOSING NOTES PATIENT IN BED AWAKE AND WATCHING TV AT THIS TIME. A/O X4, ABLE TO MAKE NEEDS KNOWN. TOLERATING ROOM AIR WELL, BREATHING EVEN AND UNLABORED. PT WITH RIGHT ARM SLING IN PLACE. DRESSING ON RIGHT HIP AND LATERAL THIGH C/D/I. IV ACCESS ON LEFT HAND #24G INTACT WITH LR @ 85 ML/HR INFUSING WELL, NO S/S OF INFILTRATION AT SITE NOTED. ALSTON IN PLACE, DRAINING CLEAR YELLOW URINE VIA GRAVITY, ALSTON CARE DONE. PT TURNED AND REPOSITIONED NEEDED. ALL NEEDS AND CARE ATTENDED WELL. SAFETY MEASURE KEPT IN PLACE: BED IN LOWEST LOCKED POSITION, SIDE RAILS UP X2, BED ALARM ON, TRAY TABLE AND CALL LIGHT WITHIN EASY REACH OF PT. WILL ENDORSE AISHA TO OILING MACHINE OPERATOR NURSE.
[2022-09-12 20:00] VITALS: BP 136/53
--- NOTE | 2022-09-12 20:14 | NUR ---
MS RN OPENING NOTE PATIENT AWAKE IN BED, ALERT/ORIENTED X 4, PT ABLE TO MAKE NEEDS KNOWN. PT DENIES PAIN AT THIS TIME. PT STABLE ON RA, NO S/S OF DISTRESS OR SOB NOTED, BREATHING EVEN AND UNLABORED. PATIENT WITH RIGHT ARM SLING IN PLACE. DRESSING RIGHT HIP AND LATERAL THIGH CLEAN, DRY AND INTACT. IV ACCESS ON LEFT HAND #24G INTACT AND INFUSING LR @ 85 ML/HR. ALSTON CATH IN PLACE AND DRAINING YELLOW URINE BY GRAVITY. SAFETY MEASURES IN PLACE: CALL LIGHT WITHIN REACH, SIDE RAILS UP X 2, BED LOCKED IN LOWEST POSITION, BED ALARM ON. WILL CONTINUE TO MONITOR PATIENT
[2022-09-13] MEDS: HYDROCODONE/APAP 10/325MG TABLET PO PRN ×3 (05:42→18:34)
[2022-09-13 07:00] VITALS: BP 144/57
[2022-09-13 07:30] LABS: BASOPHILS % (AUTO) 0.1 % (0.0-2.0); EOSINOPHILS % (AUTO) 1.3 % (0.0-6.0); HEMATOCRIT 26 % (33-45); HEMOGLOBIN 8.5 g/dL (11.5-14.8); LYMPHOCYTES # (AUTO) 1.3 K/uL (0.8-4.8); LYMPHOCYTES % (AUTO) 21.9 % (20.0-44.0); MEAN CORPUSCULAR HGB CONC 33 g/dl (31.0-36.0); MEAN CORPUSCULAR VOLUME 81 fL (82-100); MONOCYTES # (AUTO) 0.5 K/uL (0.1-1.30); MONOCYTES % (AUTO) 8.6 % (2.0-12.0); NEUTROPHILS # (AUTO) 4.1 K/uL (1.8-8.9); NEUTROPHILS % (AUTO) 68.1 % (43.0-81.0); PLATELET COUNT (AUTO) 305 K/uL (150-450); RED BLOOD CELL COUNT(AUTO) 3.23 MIL/uL (4.0-5.2)
--- NOTE | 2022-09-13 07:43 | NUR ---
MS RN CLOSING NOTE PATIENT AWAKE IN BED, ALERT/ORIENTED X 4, PT ABLE TO MAKE NEEDS KNOWN. PT STABLE ON RA, NO S/S OF DISTRESS OR SOB NOTED, BREATHING EVEN AND UNLABORED. PATIENT WITH RIGHT ARM SLING IN PLACE. DRESSING RIGHT HIP AND LATERAL THIGH CLEAN, DRY AND INTACT. IV ACCESS ON LEFT HAND #24G INTACT AND INFUSING LR @ 85 ML/HR. ALSTON CATH IN PLACE AND DRAINING YELLOW URINE BY GRAVITY, 1000 ML OUTPUT. MEDICATIONS GIVEN ORDERED, PT NEEDS MET THROUGHOUT SHIFT. SAFETY MEASURES IN PLACE: CALL LIGHT WITHIN REACH, SIDE RAILS UP X 2, BED LOCKED IN LOWEST POSITION, BED ALARM ON. ENDORSED TO DAYSHIFT RN FOR CONTINUITY OF CARE
[2022-09-13 07:56] LABS: CALCIUM, SERUM 7.4 mg/dL (8.5-10.1); CARBON DIOXIDE 28 mmol/L (21-32); CHLORIDE 103 mmol/L (98-107); CREATININE 0.5 mg/dL (0.6-1.3); GLUCOSE 90 mg/dL (74-106); MAGNESIUM 1.9 mg/dL (1.8-2.4); PHOSPHORUS 2.4 mg/dL (2.5-4.9); POTASSIUM 3.4 mmol/L (3.5-5.1); SODIUM SERUM 137 mmol/L (136-145); UREA NITROGEN, BLOOD 12 mg/dL (7-18)
[2022-09-13] MEDS: CHOLECALCIFEROL 1,000 UNIT TABLET (VIT D3) PO SCH (08:38)
[2022-09-13] MEDS: CALCIUM CARBONATE (1250) 500 MG TABLET PO SCH (08:38)
[2022-09-13] MEDS: PANTOPRAZOLE 40 MG TABLET.DR PO SCH (08:38)
[2022-09-13] MEDS: AMLODIPINE BESYLATE 5 MG TABLET PO SCH (08:38)
[2022-09-13] MEDS: MULTIVIT W/MINERALS 1 TAB TABLET PO SCH (08:38)
[2022-09-13] MEDS: LOSARTAN POTASSIUM 50 MG TABLET PO SCH (08:39)
[2022-09-13] MEDS: IV LR 1000 ML 1,000 ML IV PRN (09:12)
[2022-09-13] MEDS ORDERED: POTASSIUM CHLORIDE 20 MEQ TAB.PRT.SR PO SCH (10:00)
[2022-09-13] MEDS ORDERED: K PHOS NEUTRAL 250 MG TABLET PO ONE (11:00)
[2022-09-13] MEDS: ENOXAPARIN SODIUM 40 MG/0.4 ML DISP.SYRIN SQ SCH (14:28)
[2022-09-13] MEDS: IRON SUCROSE COMPLEX 200 MG in IV NS 0.9% 100 ML IV SCH (14:39)
[2022-09-13 16:00] VITALS: BP 145/69
--- NOTE | 2022-09-13 19:53 | NUR ---
RN CLOSING NOTE PATIENT ASLEEP IN BED. A/OX4. NO S/S OF DISTRESS, BREATHING WITHOUT DIFFICULTY ON ROOM AIR. RFA #20 INTACT AND PATENT W/ LR 85ML/HR. DUE MEDS GIVEN. ALL NEEDS ATTENDED. SAFETY MEASURES IN PLACE: BED LOCKED AND AT LOWEST POSITION, RAILS UP X2, CALL DAVIDSON WITHIN REACH. WILL ENDORSE TO NEXT SHIFT FOR AISHA.
--- NOTE | 2022-09-13 20:00 | NUR ---
MS RN OPENING NOTE PATIENT AWAKE IN BED, ALERT/ORIENTED X 4, PT ABLE TO MAKE NEEDS KNOWN. PT STABLE ON RA, NO S/S OF DISTRESS OR SOB NOTED, BREATHING EVEN AND UNLABORED. PATIENT WITH RIGHT ARM SLING IN PLACE. DRESSING RIGHT HIP AND LATERAL THIGH CLEAN, DRY AND INTACT. IV ACCESS ON LEFT HAND #24G INTACT AND INFUSING LR @ 85 ML/HR, PT C/O OF PAIN AT IV SITE, ASSESSED NO REDNESS, SWELLING OR S/S OF INFILTRATION NOTED, OFFERED TO PLACE A NEW IV AND REMOVE THIS ONE BUT PATIENT REFUSED, OFFERED ICE PACK. ALSTON CATH IN PLACE AND DRAINING YELLOW URINE BY GRAVITY. SAFETY MEASURES IN PLACE: CALL LIGHT WITHIN REACH, SIDE RAILS UP X 2, BED LOCKED IN LOWEST POSITION, BED ALARM ON. WILL CONTINUE TO MONITOR PATIENT
[2022-09-13 21:11] VITALS: BP 146/57
[2022-09-14] MEDS: HYDROCODONE/APAP 10/325MG TABLET PO PRN ×3 (03:09→16:51)
[2022-09-14 06:57] LABS: BASOPHILS % (AUTO) 0.2 % (0.0-2.0); EOSINOPHILS % (AUTO) 2.3 % (0.0-6.0); HEMATOCRIT 28 % (33-45); LYMPHOCYTES # (AUTO) 1.2 K/uL (0.8-4.8); LYMPHOCYTES % (AUTO) 21.7 % (20.0-44.0); MEAN CORPUSCULAR HGB CONC 32 g/dl (31.0-36.0); MEAN CORPUSCULAR VOLUME 83 fL (82-100); MONOCYTES # (AUTO) 0.5 K/uL (0.1-1.30); MONOCYTES % (AUTO) 8.5 % (2.0-12.0); NEUTROPHILS # (AUTO) 3.9 K/uL (1.8-8.9); NEUTROPHILS % (AUTO) 67.3 % (43.0-81.0); PLATELET COUNT (AUTO) 332 K/uL (150-450); RED BLOOD CELL COUNT(AUTO) 3.43 MIL/uL (4.0-5.2); WHITE BLOOD COUNT (AUTO) 5.7 K/uL (4.3-11.0)
--- NOTE | 2022-09-14 07:10 | NUR ---
MS RN CLOSING NOTE PATIENT SLEEPING IN BED, ALERT/ORIENTED X 4, PT ABLE TO MAKE NEEDS KNOWN. PT STABLE ON RA, NO S/S OF DISTRESS OR SOB NOTED, BREATHING EVEN AND UNLABORED. PATIENT WITH RIGHT ARM SLING IN PLACE. DRESSING RIGHT HIP AND LATERAL THIGH CLEAN, DRY AND INTACT. IV ACCESS ON LEFT HAND #24G INTACT AND SALINE LOCKED, PATIENT WANTED IVF TO BE DISCONNECTED. ALSTON CATH IN PLACE AND DRAINING YELLOW URINE BY GRAVITY. PATIENT NOTED WITH OPEN SACRAL DTI, WOUND CARE CONSULT ORDERED. SAFETY MEASURES IN PLACE: CALL LIGHT WITHIN REACH, SIDE RAILS UP X 2, BED LOCKED IN LOWEST POSITION, BED ALARM ON. WILL ENDORSE TO DAYSHIFT RN FOR CONTINUITY OF CARE
[2022-09-14 07:17] LABS: CALCIUM, SERUM 7.8 mg/dL (8.5-10.1); CARBON DIOXIDE 28 mmol/L (21-32); CHLORIDE 104 mmol/L (98-107); CREATININE 0.4 mg/dL (0.6-1.3); GLUCOSE 83 mg/dL (74-106); MAGNESIUM 1.9 mg/dL (1.8-2.4); PHOSPHORUS 3.4 mg/dL (2.5-4.9); POTASSIUM 3.5 mmol/L (3.5-5.1); SODIUM SERUM 140 mmol/L (136-145); UREA NITROGEN, BLOOD 11 mg/dL (7-18)
--- NOTE | 2022-09-14 07:45 | NUR ---
MS RN OPENING NOTE RECEIVED PATIENT AWAKE, LYING IN BED WITH HOB ELEVATED, ALERT/ORIENTED X 4, ABLE TO MAKE NEEDS KNOWN. PT STABLE ON RA, NO S/S OF ANY DISTRESS NOR SOB NOTED, BREATHING EVEN AND UNLABORED. PATIENT WITH RIGHT ARM SLING IN PLACE. C/D/I DRESSING RIGHT HIP AND LATERAL THIGH NOTED. IV ACCESS ON LEFT HAND #24G INTACT AND INFUSING LR @ 85 ML/HR, DENIES NO PAIN/DISCOMFORT AT THIS MOMENT. ALSTON CATH IN PLACE AND DRAINING LIGHT YELLOW URINE BY GRAVITY. SAFETY MEASURES IN PLACE: CALL LIGHT AND TRAY WITHIN REACH, SIDE RAILS UP X 2, BED LOCKED IN LOWEST POSITION, BED ALARM ON. WILL CONTINUE TO MONITOR PATIENT
[2022-09-14] MEDS: PANTOPRAZOLE 40 MG TABLET.DR PO SCH (07:53)
[2022-09-14 08:00] VITALS: BP 157/72
--- NOTE | 2022-09-14 08:45 | NUR ---
WOUND CONSULT DONE - WOUND NURSE RECOMMENDS OFFLOADING OF HEELS, TURNING AND REPOSITIONING FREQUENTLY, FOR THE SACRAL WOUND - APPLY OIL EMULSION AND OPTIFOAM COVERING
--- NOTE | 2022-09-14 09:08 | NUR ---
WOUND CARE CONSULT: PT PRESENTS WITH SACRAL DEEP TISSUE INJURY WHICH IS IN EVOLUTION. PT NOTED TO HAVE VERY BONY SACRAL AREA. PT NOTED TO HAVE MULTIPLE CO-MORBIDITIES INCLUDING RT HIP FRACTURE (STATUS POST SURGICAL PROCEDURE), RT HUMERAL HEAD FRACTURE WITH ARM SLING IN PLACE, LEUKOCYTOSIS, ANEMIA AND HYPOKALEMIA WELL HISTORY OF LEFT BREAST CANCER. DUE TO CO-MORBIDITIES, FURTHER SKIN BREAKDOWN MAY BE UNAVOIDABLE. DISCUSSED SKIN PROTECTION AND WOUND CARE WITH NURSING STAFF. PT HAS ALSTON CATHETER. IN AGREEMENT WITH PLAN OF CARE. Addendum: 09/14/22 at 0911 by CAIN TRIMBLE WNDNU Amended: Links added.
[2022-09-14] MEDS: CHOLECALCIFEROL 1,000 UNIT TABLET (VIT D3) PO SCH (10:04)
[2022-09-14] MEDS: MULTIVIT W/MINERALS 1 TAB TABLET PO SCH (10:04)
[2022-09-14] MEDS: CALCIUM CARBONATE (1250) 500 MG TABLET PO SCH (10:04)
[2022-09-14] MEDS: AMLODIPINE BESYLATE 5 MG TABLET PO SCH (10:04)
[2022-09-14] MEDS: LOSARTAN POTASSIUM 50 MG TABLET PO SCH (10:05)
[2022-09-14] MEDS ORDERED: ENSURE ENLIVE CHOC 237 ML CAN PO SCH (12:00)
[2022-09-14] MEDS ORDERED: DOCU-141 PO (12:46)
[2022-09-14] MEDS ORDERED: ENOX40DI SQ (12:46)
[2022-09-14] MEDS ORDERED: HYDR-3980 PO (12:46)
[2022-09-14] MEDS: ENOXAPARIN SODIUM 40 MG/0.4 ML DISP.SYRIN SQ SCH (13:51)
[2022-09-14 16:00] VITALS: BP 127/60
--- NOTE | 2022-09-14 17:05 | NUR ---
MS SKIN SPECIALIST NOTE PT DISCHARGED TO [facility] IN STABLE CONDITION AOX4, ABLE TO MAKE NEEDS KNOWN, ON ROOM AIR WITH SPO2 OF 98%, NO SOB NOTED, NOT IN ANY FORM OF APPARENT DISTRESS. VITAL SIGN TAKEN, STABLE AND RECORDED. PT IS NOTED TO HAVE STAGE 2 WOUND IN THE SACRUM - WOUND TREATMENT GIVEN ORDERED, CLEANSE WITH NS, PAT DRY, APPLY ADAPTIC COVER, AND FOAM DRESSING. PICTURE TAKEN. PATIENT REQUESTED TO GET PAIN MEDICATION FOR 7/10 PAIN BEFORE TRANSFERRING - GIVEN NORCO . ALL BELONGINGS ACCOUNTED FOR, FORM SIGNED. DISCHARGE INSTRUCTIONS RELAYED TO THE SNF RN JAIDEN- PATIENT IS ALSO AWARE OF THE DISCHARGE PLANNING. MED. RECON ADDED. REMOVED IV ACCESS ON L G#24, NO ACTIVE BLEEDING NOTED. PT LEFT THE UNIT AT AROUND 1700 VIA GURNEY WITH 2 ASSISTANT STORE MANAGER. CHARGE NURSE AND MD AWARE OF THE DC.
--- NOTE | 2022-09-14 17:15 | NUR ---
RN NOTES - PORSHA LEFT BEHIND, CALLED DAUGHTER, DAUGHTER WILL MANAGER NURSING HOME TOMORROW MORNING 09/15
== END 2022-09-14 17:26 | DRG 481 ==
LOC: ER 16:53 → MED 20:47
PROVIDERS: ADMIT Nurse Practitioner Acute Care; ATTEND Internal Medicine
PROC: 0QS606Z Reposition Right Upper Femur with Intramedullary Internal Fixation Device, Open Approach (ICD-10-PCS; principal; 2022-09-09)
PROC: 30233N1 Transfusion of Nonautologous Red Blood Cells into Peripheral Vein, Percutaneous Approach (ICD-10-PCS; 2022-09-11)
DX: S72.141A Displaced intertrochanteric fracture of right femur, initial encounter for closed fracture (principal); S42.291A Other displaced fracture of upper end of right humerus, initial encounter for closed fracture; W01.0XXA Fall on same level from slipping, tripping and stumbling without subsequent striking against object, initial encounter; E86.0 Dehydration; E87.6 Hypokalemia; Z20.822 Contact with and (suspected) exposure to COVID-19; S00.11XA Contusion of right eyelid and periocular area, initial encounter; Y93.01 Activity, walking, marching and hiking; Y92.015 Private garage of single-family (private) house as the place of occurrence of the external cause; Z87.19 Personal history of other diseases of the digestive system; Z85.3 Personal history of malignant neoplasm of breast; Z90.710 Acquired absence of both cervix and uterus; Z88.2 Allergy status to sulfonamides; I10 Essential (primary) hypertension; D72.829 Elevated white blood cell count, unspecified; D63.8 Anemia in other chronic diseases classified elsewhere; E88.09 Other disorders of plasma-protein metabolism, not elsewhere classified; R79.89 Other specified abnormal findings of blood chemistry
CPT/HCPCS: 36415; 70450-TC; 70486-TC; 71045-TC; 72192-TC; 73030-TC; 73501; 73502; 73552; 80048-TC; 80053-TC; 80061-TC; 80076-TC; 81001; 82378; 82728-TC; 83540-TC; 83735-TC; 84100-TC; 84443-TC; 85025-TC; 85027-TC; 85610-TC; 85730-TC; 86850-TC; 87081-TC; 87086-TC; 93307-TC; 97110-TC; 97112-TC; 97530-TC; A4217; A4565; A6209; C1713; C9113; C9803; G0378; J0690; J1170; J1650; J1756; J2405; J2704; J2765; J3010; J3370; J3480; J3490; J7030; J7060; J7120; P9016

== ENCOUNTER 2022-09-26 18:16 | Emergency (ER) | payer MEDICARE, OTHER ==
[~2022-09-26] VITALS: Ht 157.5 cm; Wt 52.6 kg
[~2022-09-26 18:16] MED LIST: AMLO-212 PO; CALC-343 PO; CHOL100043 PO; DOCU-141 PO; ENOX40DI SQ; HYDR-3980 PO; LOSA50TA39 PO; MULT-447 PO; POTA10TA10 PO
--- NOTE | 2022-09-26 18:35 | NUR ---
RECEIVED PT 82 Y[facility] FEM[facility] C/O PAIN ON RT TOE AWAKE ALERT WITH RT SHOMARIOLAER ARM SLINF WITH F/C
--- NOTE | 2022-09-26 18:45 | NUR ---
SEE AND EXAMIN PT
--- NOTE | 2022-09-26 19:35 | NUR ---
HAND OFF GATO OLIVER
[2022-09-26 19:38] VITALS: BP 138/82
--- NOTE | 2022-09-26 22:11 | NUR ---
CALLED [facility] FOR TRASPORTATION SET UP PER [facility] THEY ARE UNABLE TO PROVIDE AN ETA
--- NOTE | 2022-09-26 22:16 | NUR ---
REPORT GIVEN TO RHODA CHARGE NURSE OF [facility] FOR AISHA
--- NOTE | 2022-09-26 22:33 | NUR ---
CALLED [facility] FOR TRANSPORTATION ETA IS 3AM
--- NOTE | 2022-09-27 00:54 | NUR ---
PT DC TO [facility]
== END 2022-09-27 00:59 ==
LOC: ER 18:40
DX: S90.31XA Contusion of right foot, initial encounter (principal); I10 Essential (primary) hypertension; Z88.2 Allergy status to sulfonamides; Z79.899 Other long term (current) drug therapy; Z90.710 Acquired absence of both cervix and uterus; Z85.3 Personal history of malignant neoplasm of breast; W22.8XXA Striking against or struck by other objects, initial encounter; Y93.B9 Activity, other involving muscle strengthening exercises; Y92.89 Other specified places as the place of occurrence of the external cause; Y99.8 Other external cause status
CPT/HCPCS: 73630-TC

== ENCOUNTER 2025-06-30 12:54 | Inpatient (IN) | payer MEDICARE, OTHER ==
[~2025-06-30] VITALS: Ht 157.5 cm; Wt 54.5 kg
[2025-06-30] MEDS ORDERED: TDAP [DIPH/PERTUSSIS/TET] 0.5 ML VIAL IM ONE (13:38)
[2025-06-30] MEDS: TDAP [DIPH/PERTUSSIS/TET] 0.5 ML VIAL IM ONE (13:47)
[2025-06-30] MEDS: BACI/NEOM/POLY B OINT PKT 1 UDPKT PACKET TP ONE (13:48)
[2025-06-30] MEDS ORDERED: ACETAMINOPHEN 325 MG TABLET ONE (14:45)
[2025-06-30] MEDS: ACETAMINOPHEN 325 MG TABLET PO ONE (14:58)
[2025-06-30] MEDS ORDERED: ONDANSETRON HCL/PF 4 MG/2 ML VIAL IVP PRN (15:30)
[2025-06-30] MEDS ORDERED: ACETAMINOPHEN 325 MG TABLET PO PRN (15:30)
[2025-06-30] MEDS ORDERED: Z GUARD REMEDY 4 OZ OINT TP PRN (15:30)
[2025-06-30] MEDS ORDERED: ZOLPIDEM TARTRATE 5 MG TABLET PO PRN (15:30)
[2025-06-30] MEDS ORDERED: MAG HYDROX/AL HYDROX/SIMETH 30 ML UDC PO PRN (15:30)
[2025-06-30] MEDS ORDERED: MAGNESIUM HYDROXIDE 30 ML UDC PO PRN (15:30)
[2025-06-30] MEDS ORDERED: MV I PO (15:42)
[2025-06-30 16:41] LABS: PLATELET COUNT (AUTO) 251 K/uL (150-450); RED BLOOD CELL COUNT(AUTO) 4.37 MIL/uL (4.0-5.2); RED CELL DISTRIBUTION WIDTH 14.2 % (11.5-15.0); WHITE BLOOD COUNT (AUTO) 12.7 K/uL (4.3-11.0)
[2025-06-30 16:50] LABS: CALCIUM, SERUM 8.4 mg/dL (8.5-10.1); CREATININE 0.7 mg/dL (0.6-1.3); SODIUM SERUM 143.0 mmol/L (136-145); UREA NITROGEN, BLOOD 15.0 mg/dL (7-18)
[2025-06-30 16:54] LABS: INR 1.08 (0.91-1.10)
[2025-06-30] MEDS: ENOXAPARIN SODIUM 40 MG/0.4 ML DISP.SYRIN SQ SCH (18:00)
[2025-06-30] MEDS: DOCUSATE SODIUM 100 MG CAPSULE PO SCH (18:45)
[2025-06-30 20:00] VITALS: BP 166/62; TEMP 98.2; O2SAT 95
[2025-06-30] MEDS: HYDROCODONE/APAP 10/325MG TABLET PO PRN (20:20)
[2025-06-30] MEDS ORDERED: POTASSIUM CHLORIDE 10 MEQ TABLET.SA ONE (20:38)
[2025-06-30] MEDS: IV D5/0.45 NACL 1,000 ML IV PRN (22:13)
[2025-06-30] MEDS ORDERED: POTASSIUM CHLORIDE 10 MEQ/50 ML PREMIXED IVPB FOR PERIPHERAL LINE IV ONE (22:30)
[2025-06-30] MEDS: POTASSIUM CL. PREMIX PERIPHER. 50 ML IV SCH (22:30)
[2025-07-01 02:15] VITALS: BP 136/76
[2025-07-01] MEDS: MORPHINE SULFATE INJ 2 MG/ML DISP.SYRIN IV PRN (02:16)
[2025-07-01 06:20] VITALS: BP 143/70; O2SAT 95
[2025-07-01 06:26] LABS: PLATELET COUNT (AUTO) 217 K/uL (150-450); RED BLOOD CELL COUNT(AUTO) 3.81 MIL/uL (4.0-5.2); RED CELL DISTRIBUTION WIDTH 13.9 % (11.5-15.0); WHITE BLOOD COUNT (AUTO) 6.2 K/uL (4.3-11.0)
[2025-07-01 06:43] LABS: CALCIUM, SERUM 8.0 mg/dL (8.5-10.1); CREATININE 0.7 mg/dL (0.6-1.3); PHOSPHORUS 3.2 mg/dL (2.5-4.9); SODIUM SERUM 141.0 mmol/L (136-145); UREA NITROGEN, BLOOD 18.0 mg/dL (7-18)
[2025-07-01 08:55] VITALS: BP 132/48; TEMP 98.1; O2SAT 97
[2025-07-01] MEDS: POTASSIUM CHLORIDE 10 MEQ TABLET.SA PO SCH (09:00)
[2025-07-01] MEDS: LOSARTAN POTASSIUM 50 MG TABLET PO SCH (09:00)
[2025-07-01] MEDS: CALCIUM CARBONATE 500 MG TAB.CHEW PO SCH (09:00)
[2025-07-01] MEDS: AMLODIPINE BESYLATE 5 MG TABLET PO SCH (09:00)
[2025-07-01] MEDS: MULTIVIT W/MINERALS 1 TAB TABLET PO SCH (09:00)
[2025-07-01] MEDS: CHOLECALCIFEROL 1,000 UNIT TABLET (VIT D3) PO SCH (09:00)
[2025-07-01] MEDS: PANTOPRAZOLE 40 MG VIAL IV SCH (09:11)
[2025-07-01] MEDS ORDERED: IOHEXOL-350 100 ML VIAL IV ONE (09:50)
[2025-07-01] MEDS ORDERED: CT SWABBABLE VALVE TRANS SET 1 EA INFUS.SET MC ONE (09:51)
[2025-07-01] MEDS ORDERED: IV NS 0.9% 250 ML IV ONE (09:51)
[2025-07-01 16:04] VITALS: BP 134/56; TEMP 98.4; O2SAT 93
[2025-07-01 20:00] VITALS: BP_SYST 122; BP_SYST 127; BP_DIAS 55; TEMP 98.2; O2SAT 93; O2SAT 94
[2025-07-02 06:19] LABS: PLATELET COUNT (AUTO) 222 K/uL (150-450); RED BLOOD CELL COUNT(AUTO) 3.92 MIL/uL (4.0-5.2); RED CELL DISTRIBUTION WIDTH 13.6 % (11.5-15.0); WHITE BLOOD COUNT (AUTO) 6.9 K/uL (4.3-11.0)
[2025-07-02 06:35] LABS: CALCIUM, SERUM 8.3 mg/dL (8.5-10.1); CREATININE 0.7 mg/dL (0.6-1.3); PHOSPHORUS 2.7 mg/dL (2.5-4.9); SODIUM SERUM 143.0 mmol/L (136-145); UREA NITROGEN, BLOOD 12.0 mg/dL (7-18)
[2025-07-02 07:30] VITALS: BP 146/53; TEMP 98.1; O2SAT 95
[2025-07-02 16:07] VITALS: BP 143/55; TEMP 97.9; O2SAT 96
[2025-07-02 20:00] VITALS: BP_SYST 132; BP_DIAS 53; BP_DIAS 54; TEMP 98.1; O2SAT 92; O2SAT 94
[2025-07-03 06:17] LABS: PLATELET COUNT (AUTO) 210 K/uL (150-450); RED BLOOD CELL COUNT(AUTO) 3.53 MIL/uL (4.0-5.2); RED CELL DISTRIBUTION WIDTH 13.8 % (11.5-15.0); WHITE BLOOD COUNT (AUTO) 6.0 K/uL (4.3-11.0)
[2025-07-03 06:37] LABS: CALCIUM, SERUM 7.9 mg/dL (8.5-10.1); CREATININE 0.7 mg/dL (0.6-1.3); PHOSPHORUS 3.0 mg/dL (2.5-4.9); SODIUM SERUM 142.0 mmol/L (136-145); UREA NITROGEN, BLOOD 13.0 mg/dL (7-18)
[2025-07-03 08:00] VITALS: BP 153/56; TEMP 98.4; O2SAT 97
[2025-07-03] MEDS: PANTOPRAZOLE 40 MG TABLET.DR PO SCH (08:46)
[2025-07-03 08:47] VITALS: BP 153/56
[2025-07-03] MEDS: CALCIUM CARBONATE 500 MG TAB.CHEW PO SCH (09:00)
[2025-07-03] MEDS: POTASSIUM CHLORIDE 20 MEQ TAB.PRT.SR PO SCH (10:04)
[2025-07-03] MEDS ORDERED: HYDR-3980 PO (11:50)
== END 2025-07-03 14:40 | DRG 535 ==
LOC: ER 12:54 → MED 18:10
PROVIDERS: ADMIT Student in an Organized Health Care Education/Training Program; ATTEND Nurse Practitioner Acute Care
DX: S32.591A Other specified fracture of right pubis, initial encounter for closed fracture (principal); L89.153 Pressure ulcer of sacral region, stage 3; K86.2 Cyst of pancreas; W01.0XXA Fall on same level from slipping, tripping and stumbling without subsequent striking against object, initial encounter; E87.6 Hypokalemia; D64.9 Anemia, unspecified; D72.829 Elevated white blood cell count, unspecified; I10 Essential (primary) hypertension; S30.0XXA Contusion of lower back and pelvis, initial encounter; Y93.9 Activity, unspecified; Y92.009 Unspecified place in unspecified non-institutional (private) residence as the place of occurrence of the external cause; I35.0 Nonrheumatic aortic (valve) stenosis; Z96.641 Presence of right artificial hip joint; K63.89 Other specified diseases of intestine; Z85.3 Personal history of malignant neoplasm of breast; Z88.2 Allergy status to sulfonamides; Z90.710 Acquired absence of both cervix and uterus; S41.111A Laceration without foreign body of right upper arm, initial encounter; L98.8 Other specified disorders of the skin and subcutaneous tissue; N28.9 Disorder of kidney and ureter, unspecified; Z87.81 Personal history of (healed) traumatic fracture
CPT/HCPCS: 36415; 71045-TC; 72170-TC; 73030-TC; 73080-TC; 73502; 73552; 80048-TC; 83735-TC; 84100-TC; 84443-TC; 85025-TC; 85730-TC; 90715; 93307-TC; 97110-TC; 97116-TC; 97530-TC; 97535-TC; A4223; A6223; A6253; A6403; A6407; G0378; J1650; J2270; J2470; J3480; J3490; J7030; J7050; Q9967